=== PATIENT | female | born 1955 | race Two or more races ===

== ENCOUNTER 2019-04-18 07:28 | Day surgery (SDC) | payer OTHER ==
[~2019-04-18 07:28] MED LIST: ALTACE2.5 MG PO; DORZOLAMIDE-TIM10 ML OP; LYRICA100 MG PO; METFORMIN HCL500 M3 PO; PRASUGREL PO; PRESERVISION A1 EAC1 PO; SIMVASTATIN5 MG PO; VITAMIN D35000 UNI2 PO; XELJANZ5 MG PO; ZETIA10 MG PO
[2019-04-18] MEDS ORDERED: PERCOCET 5-3251 EACH PO (12:40)
== END 2019-04-18 16:00 | disposition home or self-care (01) ==
LOC: CIR.AMB 07:28
DX: D35.1 Benign neoplasm of parathyroid gland (principal)

== ENCOUNTER 2024-09-07 07:09 | Outpatient (CLI) | payer OTHER ==
[~2024-09-07 07:09] MED LIST changes: +PERCOCET 5-3251 EACH PO
== END 2024-09-07 07:11 | disposition home or self-care (01) ==
LOC: NUCLEAR 07:09
PROVIDERS: ATTEND Internal Medicine Endocrinology, Diabetes & Metabolism
DX: E21.3 Hyperparathyroidism, unspecified (principal)
CPT/HCPCS: 78070; A9505